=== PATIENT | male | born 1980 | race Caucasian/White ===

== ENCOUNTER → 2018-07-02 10:26 | Outpatient (CLI) | payer OTHER, SELFPAY ==
[2018-07-02 12:44] LABS: Vitamin D,25 Hydroxy 15.7 ng/mL (29.95-100.01)
[2018-07-02 12:50] LABS: Anion Gap 10 (5-15); BUN 16 mg/dL (7-18); BUN/Creat Ratio 17.8 RATIO (10-20); Calcium,Total 8.6 mg/dL (8.5-10.1); Chloride 106 mmol/L (98-107); Cholesterol 208 mg/dL (200); EST Glomerular Filtration Rate 101 mL/min (>60); Est Glom Filt Rate - Afr Amer 122 mL/min (>60); Glucose 79 mg/dL (74-106); High Density Lipoprotein 31 mg/dL; Potassium 3.7 mmol/L (3.5-5.1); Sodium Level 142 mmol/L (136-145); Thyroid Stim Hormone (TSH) 2.22 uIU/mL (0.358-3.74); Triglycerides 245 mg/dL; Very Low Density Lipoprotein 49 mg/dL (5-40)
== END ==
PROVIDERS: Family Provider Family Medicine; PCP Family Medicine; Visit Provider Family Medicine
DX: Z00.00 Encounter for general adult medical examination without abnormal findings (principal)
CPT/HCPCS: 36415; 80048; 80061; 82306; 84403; 84443

== ENCOUNTER 2018-12-11 18:24 | Emergency (ER) | payer OTHER, SELFPAY ==
[2018-12-11 18:26] VITALS: BP 145/93; PULSE 106; RESP 18; TEMP 36.9; O2SAT 98; BMI 31.9
--- NOTE | 2018-12-11 18:57 | CT_ITS ---
STUDY: CT SOFT TISSUE NECK WITH CONTRAST REASON FOR EXAM: Male, 38 years old. Sore neck abscess cough RADIATION DOSAGE (If Supplied By Facility): CTDIvol = ( 19.55 ) mGy, DLP = ( 590.66 ) mGycm TECHNIQUE: The patient was scanned in a multi-detector CT scanner. High resolution transaxial imaging was performed following intravenous administration of 100ml IV Isovue 300. Sagittal and coronal images were reconstructed. Individualized dose optimization techniques were used for this CT. COMPARISON: None. FINDINGS: There is fluid and mucosal reactive change in the anterior ethmoid sinuses and left maxillary sinus, with minimal change in the right maxillary sinus. Nasopharynx is clear. Evaluation of the pharynx is limited due to motion artifact, specifically breathing or swallowing, with indistinct appearance. There is no pharyngeal tonsillar or parapharyngeal abscess. Epiglottis is not well delineated. There is possible lingual tonsillar hypertrophy/inflammatory change versus artifact. Vocal cords are normal and open. Airway is patent. Retropharyngeal space is normal. Salivary glands are normal. Thyroid is normal. Orbits are normal. Upper mediastinal contents and lung apices are normal. Osseous structures are intact. CT/Soft Tissue Neck WITH Contrast IMPRESSION: 1. Questionable lingual tonsillitis versus artifact. 2. Left maxillary sinus acute reactive changes, possibly sinusitis. Electronically Signed: Manjinder Gordon, at 20:13 EDT Tel , Service support ,
[2018-12-11] MEDS: 0.9% Normal Saline 1,000 ML 1000 ML IV (19:11)
[2018-12-11] MEDS: Ketorolac 15 MG/ML Vial IV (19:11)
[2018-12-11] MEDS: dexAMETHasone 10 MG/ML Vial IV (19:11)
[2018-12-11 19:44] LABS: Absolute Lymphocyte Count 2.16 X10^3/ul (0.83-4.51); Basophil# 0.03 X10^3/uL; Basophil% 0.3 % (0-1); Eosinophil# 0.16 X10^3/uL; Eosinophils% 1.8 % (0-5); Hematocrit 43.2 % (40-54); Hemoglobin 14.8 g/dl (13.0-16.5); Lymphocyte # 2.16 X10^3/ul (4.0); Lymphocyte % 24.2 % (19-41); Mean Corp Hgb Conc 34.3 g/gl (32-36); Mean Corpuscular Hgb 28.1 pg (27.0-32.0); Mean Platelet Vol. 9.9 fl (6.2-12.0); Monocyte# 0.58 X10^3/uL; Monocyte% 6.5 % (0-10); Neutrophil # 5.98 X10^3/uL (2.7-7.7); Neutrophil % 66.9 % (47-70); Platelet Count 205 K/mm3 (150-450); RBC Distribution Width CV 13.6 % (11.6-14.6); RBC Distribution Width SD 40.5 fl (35.1-43.9); Red Blood Count 5.27 M/mm3 (4.6-6.2); White Blood Count 8.9 K/mm3 (4.4-11.0)
[2018-12-11 19:45] LABS: ALB/GLOB Ratio 1.1 RATIO (0.9-2.4); AST(SGOT) 31 U/L (15-37); Alanine Aminotransfer ALT/SGPT 82 U/L (16-61); Albumin, Serum 4.1 g/dL (3.2-5.0); Alkaline Phosphatase 88 U/L (45-117); Anion Gap 6 (5-15); BUN 14 mg/dL (7-18); BUN/Creat Ratio 13.9 RATIO (10-20); Calcium,Total 8.6 mg/dL (8.5-10.1); Chloride 109 mmol/L (98-107); Creatinine, Serum 1.01 mg/dL (0.70-1.30); EST Glomerular Filtration Rate 88 mL/min (>60); Est Glom Filt Rate - Afr Amer 106 mL/min (>60); Estimated Creatinine Clearance 102.39 ml/min; Globulin 3.8 g/dL (2.2-4.2); Glucose 84 mg/dL (74-106); POSITIVE COUNT NO; POSITIVE DIFFERENTIAL NO; POSITIVE MORPHOLOGY NO; Potassium 3.6 mmol/L (3.5-5.1); Protein, Total 7.9 g/dL (6.4-8.2); Sodium Level 142 mmol/L (136-145)
--- NOTE | 2018-12-11 20:32 | ED.DCSUM_ITS ---
- ER Visit Summary Date of Service: 12/11/18 Chief Complaint: Sore throat, neck pain History of Present Illness: The patient is a 38 M presents to the emergency department infectious symptoms. Patient states on Thursday, he had some nasal drainage. He states shortly after, he began to have a mild sore throat. He states today, he woke up with some muscle pain and pain in his neck. He states it hurts when he would move. He denies any fever but does admit to some chills. He denies headache or change in vision. He denies any back pain or dysuria. Physical Examination: Vital signs reviewed General: Well-nourished, well-developed Head: Normocephalic, atraumatic Eyes: Pupils equal and reactive, extraocular muscles intact Throat exam: Oropharynx is widely patent. Uvula midline. Bilateral hypertrophy of the tonsils. No exudate. No trismus. Neck, supple, anterior, negative Kernig's and Brudzinski's lymphadenopathy Heart: Regular rate and rhythm Respiratory: No distress, clear bilaterally Abdomen: Soft, nontender, nondistended, no peritoneal signs Back: Nontender Extremities: Nontender, no edema, no cords Skin: Normal color no rash Neuro: Alert and oriented, no focal or lateralizing deficits Test Results: [] Emergency Department Course and Treatment: The patient did have rather significant lymphadenopathy. His Kernig's and Brudzinski's were negative. He did obtain a CT of the soft tissue of his neck. There is evidence of sinusitis and reactive lymphadenopathy, but no abscess. He was given Decadron and Toradol. On reevaluation, he is feeling markedly improved. I am going to treat the patient with doxycycline. He is comfortable with this plan of care. He will be discharged home. Treatment Plan: [] Disposition: Discharge Impression: 1. Acute sinusitis 2. Lymphadenitis This note was generated with [employer] dictation software. It may contain incorrect words, spelling, and punctuation that were not noted in review of the chart prior to signing ED Disposition - Plan for ED Patient: Instructions: ED Sinusitis Abx Tx Prescriptions: Doxycycline 100 mg PO BID #20 cap Referrals: Alfredo Aj MD [Primary Care Provider] -
[2018-12-11] MEDS: Doxycycline 100 MG CAPSULE PO (20:58)
[2018-12-11 20:59] VITALS: RESP 18
== END 2018-12-11 21:00 | disposition home or self-care (01) ==
LOC: ED 19:05
PROVIDERS: Emergency Provider Emergency Medicine; Family Provider Family Medicine; PCP Family Medicine
DX: J01.90 Acute sinusitis, unspecified (principal); I88.9 Nonspecific lymphadenitis, unspecified
CPT/HCPCS: 70491; 80053; 85025; 96361; 96374; 96375; 99285; J7030; Q9967; A4216

== ENCOUNTER → 2020-11-01 09:57 | Outpatient (CLI) | payer OTHER, SELFPAY ==
[2020-11-01 12:59] LABS: Absolute Lymphocyte Count 2.13 X10^3/uL (0.83-4.51); Absolute Neutrophil Count 4.2 X10^3/uL (2.0-7.7); Basophil# 0.04 X10^3/uL; Basophil% 0.6 % (0-1); Eosinophil# 0.16 X10^3/uL; Eosinophils% 2.3 % (0-5); Hematocrit 46.7 % (40-54); Hemoglobin 14.5 g/dL (13.0-16.5); Lymphocyte # 2.13 X10^3/ul (0.83-4.51); Lymphocyte % 30.3 % (19-41); Mean Corpuscular Hgb 26.6 pg (27.0-32.0); Mean Corpuscular Volume 85.5 fL (80-94); Mean Platelet Vol. 10.4 fl (6.2-12.0); Monocyte# 0.38 X10^3/uL; Monocyte% 5.4 % (0-10); NRBC Flagged by Analyzer 0 % (0-5); Neutrophil # 4.24 X10^3/uL (2.7-7.7); Neutrophil % 60.1 % (47-70); Platelet Count 239 K/mm3 (150-450); RBC Distribution Width SD 42.9 fl (35.1-43.9); Red Blood Count 5.46 M/mm3 (4.6-6.2)
[2020-11-01 13:10] LABS: Anion Gap 2 (5-15); BUN 15 mg/dL (7-18); BUN/Creat Ratio 15.4 RATIO (10-20); Calcium,Total 8.8 mg/dL (8.5-10.1); Chloride 108 mmol/L (98-107); Creatinine, Serum 0.97 mg/dL (0.70-1.30); EST Glomerular Filtration Rate 91 mL/min (>60); Est Glom Filt Rate - Afr Amer 110 mL/min (>60); Glucose 86 mg/dL (74-106); Potassium 4.1 mmol/L (3.5-5.1); Sodium Level 140 mmol/L (136-145)
[2020-11-02 16:08] LABS: Endomysial Antibody IgA Negative (Negative)
[2020-11-02 16:19] LABS: Immunoglobulin A 241 mg/dL (90-386); t-Transglutaminase IgA <2 U/mL (0-3)
[2020-11-05 09:36] LABS: Alternaria alternata <0.10 kU/L (Class 0); Aspergillus fumigatus <0.10 kU/L (Class 0); Beef <0.10 kU/L (Class 0); Cat Hair/Dander, Standard 0.12 kU/L (Class 0/I); Cedar, Mountain 0.69 kU/L (Class II); Cladosporium herbarum <0.10 kU/L (Class 0); Cockroach, American 0.13 kU/L (Class 0/I); Corn 0.31 kU/L (Class 0/I); D farinae Mite <0.10 kU/L (Class 0); D pteronyssinus 0.12 kU/L (Class 0/I); Egg, Whole <0.10 kU/L (Class 0); Elm, American White 8.37 kU/L (Class IV); Hazelnut Tree 9.24 kU/L (Class IV); Johnson Grass 9.82 kU/L (Class IV); Milk (Cow) <0.10 kU/L (Class 0); Mucor racemosus 0.13 kU/L (Class 0/I); Mugwort 4.73 kU/L (Class IV); Mulberry, White 4.25 kU/L (Class IV); Nettle 5.86 kU/L (Class IV); Penicillium chrysogen <0.10 kU/L (Class 0); Plantain, English 4.97 kU/L (Class IV); Pork <0.10 kU/L (Class 0); Ragweed, Short/Common 8.88 kU/L (Class IV); Sheep Sorrel(Dock) 9.19 kU/L (Class IV); Soybean 0.23 kU/L (Class 0/I); Stemphylium herbarum <0.10 kU/L (Class 0); Sweet Gum 9.98 kU/L (Class IV); Wheat 0.63 kU/L (Class II)
[2020-11-05 12:06] LABS: Chocolate <0.10 kU/L (Class 0)
== END ==
PROVIDERS: PCP Family Medicine; Visit Provider Family Medicine
DX: R19.7 Diarrhea, unspecified (principal); Z01.82 Encounter for allergy testing
CPT/HCPCS: 36415; 80048; 82784; 83516; 85025; 86003; 86005; 86255

== ENCOUNTER → 2020-11-26 20:30 | Outpatient (CLI) | payer OTHER, SELFPAY | PROVIDERS: PCP Family Medicine; Visit Provider Family Medicine | DX: G47.30 Sleep apnea, unspecified (principal) | CPT/HCPCS: 95811 ==

== ENCOUNTER → 2021-12-25 | Outpatient (CLI) | payer OTHER, SELFPAY ==
--- NOTE | 2021-12-25 10:27 | RAD_ITS ---
STUDY: X-RAY - LEFT ELBOW REASON FOR EXAM: Male, 41 years old. One-month history of a elbow pain. No history of trauma. TECHNIQUE: 3 view(s) of the elbow. COMPARISON: None. FINDINGS: Normal visualized humerus, radius and ulna. Normal radiocapitellar and ulnotrochlear articulations. The soft tissue structures are unremarkable. RAD/Elbow min 3 Views IMPRESSION: Normal x-ray examination of the elbow. Electronically Signed: Uday Felix MD at 10:51 EDT ,
[2021-12-25 12:34] LABS: CRP 3.06 mg/L (0.0-3.0); Erythrocyte Sedimentation Rate 8 mm/hr (0-20)
[2021-12-26 21:51] LABS: ANTINUCLEAR ANTIBODIES DIRECT Negative (Negative)
== END | disposition home or self-care (01) ==
PROVIDERS: PCP Family Medicine; Referring Provider Family Medicine; Visit Provider Family Medicine
DX: M25.522 Pain in left elbow (principal)
CPT/HCPCS: 36415; 73080; 85652; 86038; 86140

== ENCOUNTER 2023-04-14 04:56 | Emergency (ER) | payer OTHER, SELFPAY ==
[2023-04-14 04:58] VITALS: BP 133/71; PULSE 84; RESP 18; TEMP 35.8; O2SAT 99; BMI 34.1
--- NOTE | 2023-04-14 04:58 | ED.VIS.DYS ---
HPI History of Present Illness Chief Complaint: Cough [facility] Medical History (Updated 04/14/23 @ 04:59 by Courtney Winston) Sleep apnea Home Medications loratadine 5 mg-pseudoephedrine ER 120 mg tablet,extended release,12hr (Claritin-D 12 Hour) 1 ea PO BID 12/11/18 [History Last Taken 12/11/18] benzonatate 100 mg capsule 100 mg PO BID PRN cough #14 caps 04/14/23 [Rx Last Taken Unknown] levocetirizine 5 mg tablet 5 mg PO DAILY 04/14/23 [History Last Taken Unknown] montelukast 10 mg tablet 10 mg PO QHS 04/14/23 [History Last Taken Unknown] Allergy/AdvReac Type Severity Reaction Status Date / Time Penicillins Allergy Hives Verified 04/14/23 04:57 Social History Smoking Status: Never smoker EXAM Physical Exam Const Vital Signs: 04/14/23 04:58 04/14/23 04:58 Temperature 96.4 F L Temperature Source Temporal Pulse Rate 84 Respiratory Rate 18 Respiratory Effort Normal Blood Pressure 133/71 H Blood Pressure Mean 91 Pulse Ox 99 MDM MDM MDM Narrative Medical decision making narrative: HISTORY OF PRESENT ILLNESS: 42-year-old male here with cough. No shortness of breath with cough. Further states he has had a cough for the greater part 2 weeks. Is nonproductive. Denies any hemoptysis. Notes he coughed so hard he developed shortness of breath and chest tightness. Denies any symptoms currently. He is fully vaccinating his COVID-19 and the flu. Notes sick contacts at home REVIEW OF SYSTEMS: Pertinent positives: Cough Pertinent negatives: Chest pain, lower extremity edema, bleeding diathesis PHYSICAL EXAM: Nursing triage notes reviewed, Vital signs reviewed Constitutional: please see mdm HENT: MMM Eyes: Pupils equal round and reactive to light, Extraocular muscles intact Neck: No stridor, no JVD, full neck ROM Lungs: Clear to left, wheezing and crackles on the right concerning for consolidative process. No increased work of breathing, no conversational dyspnea, no accessory muscle use, no nasal flaring. No respiratory distress noted Heart: Regular rate and rhythm, No murmurs, No rubs and No gallops, 2+ distal pulses (radial, femoral, posterior tibial) in all extremities Abdomen: Soft, there is no tenderness, rigidity, rebound or guarding, no obvious peritoneal signs, no palpable pulsatile abdominal masses, no auscultated abdominal bruit : No CVAT Extremities: No edema Neuro: No focal neurological deficits, cranial nerves II through XII intact, 5/5 strength in all extremities. Intact sensation to light touch in all extremities, 2+ reflexes bilateral patella tendons. Normal gait. No ataxia. Skin: No rash or lesions noted MEDICAL DECISION MAKING: Chief Complaint: Cough External records reviewed: Recent Bills imaging of the chest Factors affecting care: [place] Social determinants of health: none History obtained from others: none Consults: none [facility] Narrative: Patient was hemodynamically stable, afebrile, nontoxic-appearing. I considered the following differential diagnosis:, Chronic bronchitis pneumonia, COVID, flu ALL IMAGES (IF OBTAINED) HAVE BEEN PERSONALLY REVIEWED AND INTERPRETED BY MYSELF. Obtained an x-ray. X-ray of the chest was read reviewed myself and showed no evidence of obvious pneumonia. Influenza, COVID swab was positive for flu B this is the likely etiology. Patient instructed to take Tessalon Perles for cough relief. Tylenol ibuprofen for fever and inflammation relief follow with his primary care physician next field appointment. He is on a candidate for Tamiflu has been greater than 2 days since symptom onset. The patient and/or family, caregivers express understanding. The patient and/or family, caregivers agrees with the plan. Shared decision making: I will have a discussion with the patient and or visitors regarding risk/benefits of further testing or admission. They will be made aware of of the risk/benefits inherent in this decision they will be given the opportunity to voice understanding. Total critical care time today provided was at least 0 minutes. This excludes separately billable procedures. Critical care time (if documented) is secondary to the patient having high probability of clinically significant/life threatening deterioration in the patient's condition which required my urgent intervention. Impression: 1. Influenza B 2. Chronic cough Dispo: Discharge Radiography Diagnostic Testing: Clinical Impression(s) from Imaging Studies Chest X-Ray 04/14/23 05:11 IMPRESSION: No evidence of active intrathoracic disease. Electronically Signed: Natali Appiah MD at 5:45 EDT , Discharge Plan Triage Chief Complaint: Cough ED Provider: Ricky Nunn Dx/Rx/DC Orders Prescriptions: New benzonatate 100 mg capsule 100 mg PO BID PRN (Reason: cough) Qty: 14 0RF No Action loratadine-pseudoephedrine [Claritin-D 12 Hour] 1 EACH tablet extended release 12 hr 1 ea PO BID montelukast 10 mg tablet 10 mg PO QHS levocetirizine 5 mg tablet 5 mg PO DAILY Primary Care Provider: Alfredo Aj Referrals: Alfredo Aj MD [Primary Care Provider] - Activity Restrictions/Additional Instructions: Thank you for trusting us with your care today! Please take Tylenol (2 pills, 650 mg), ibuprofen (2 pills, 400 mg) every 6 hours as needed for pain and fever control. Please return to the emergency department if your symptoms change or worsen. Specifically develop worsening shortness of breath or chest pain. Please follow with your primary care physician for further outpatient evaluation and management. Disposition Disposition: Home, Self Care Discharge Date/Time: 04/14/23 06:20
--- NOTE | 2023-04-14 05:11 | RAD_ITS ---
INDICATION: cough r/o PNA EXAMINATION/TECHNIQUE: X-RAY - XR Chest 2 Views COMPARISON: None FINDINGS: LINES/DEVICES: None. LUNGS: No consolidation. No pneumothorax. MEDIASTINUM: Unremarkable. CARDIAC SILHOUETTE: Not enlarged. BONES AND SOFT TISSUES: No acute abnormalities. RAD/Chest PA and Lateral IMPRESSION: No evidence of active intrathoracic disease. Electronically Signed: Natali Appiah MD at 5:45 EDT ,
== END 2023-04-14 06:20 | disposition home or self-care (01) ==
PROVIDERS: Emergency Provider Emergency Medicine; PCP Family Medicine; Visit Provider Emergency Medicine
DX: J10.1 Influenza due to other identified influenza virus with other respiratory manifestations (principal); R05.3 Chronic cough; G47.30 Sleep apnea, unspecified
CPT/HCPCS: 71046; 87428; 99282

== ENCOUNTER → 2024-10-21 | Outpatient (CLI) | payer OTHER, SELFPAY ==
[2024-10-21 10:59] LABS: ALB/GLOB Ratio 1.4 RATIO (0.9-2.4); AST(SGOT) 51 U/L (<=37); Alanine Aminotransfer ALT/SGPT 104 U/L (<=46); Albumin, Serum 4.3 g/dL (3.5-5.0); Alkaline Phosphatase 89 U/L (40-129); Anion Gap 13 (5-15); BUN 18 mg/dL (4-19); BUN/Creat Ratio 19.2 RATIO (10-20); Carbon Dioxide 23.5 mmol/L (21.0-32.0); Chloride 106 mmol/L (98-108); Cholesterol 211 mg/dL (<=200); Creatinine, Serum 0.94 mg/dL (0.70-1.20); EST Glomerular Filtration Rate 103 (>60); Glucose 104 mg/dL (70-99); High Density Lipoprotein 34 mg/dL; Low Density Lipoprotein Calc. 122 mg/dL; Potassium 4.2 mmol/L (3.3-5.1); Protein, Total 7.3 g/dL (5.9-8.4); Sodium Level 142 mmol/L (133-145); Total Bilirubin 0.54 mg/dL (0.00-1.30); Triglycerides 278 mg/dL; Very Low Density Lipoprotein 56 mg/dL (5-40); cholesterol:hdl ratio screen 6.26
== END | disposition home or self-care (01) ==
LOC: MFPLAB 09:10
PROVIDERS: PCP Family Medicine; Referring Provider Family Medicine; Visit Provider Family Medicine
DX: E29.0 Testicular hyperfunction (principal); E78.5 Hyperlipidemia, unspecified
CPT/HCPCS: 36415; 80053; 80061; 84403